=== PATIENT | female | born 1960 | race Caucasian/White ===

== ENCOUNTER 2024-03-18 21:40 | Emergency (ER) | payer OTHER ==
[~2024-03-18] VITALS: Ht 162.6 cm; Wt 113.4 kg
[~2024-03-18 21:40] MED LIST: ALBU90AE2; BENZ100C92 PO; MOLN200C PO; PRED20TA PO
[2024-03-18 21:43] VITALS: BP_SYST 128; PULSE 78; RESP 16; TEMP 98.6; O2SAT 97
[2024-03-18] MEDS ORDERED: DIPHTH,PERTUSS(ACELL),TET VAC 0.5 ML VIAL (Tdap) I.M. ONE (22:30)
[2024-03-18] MEDS ORDERED: LIDOCAINE 1%, 20 ML MDV 20 ML ONE (22:42)
[2024-03-18 23:30] VITALS: BP_SYST 128; PULSE 78; RESP 16; TEMP 98.6; O2SAT 97
== END 2024-03-18 23:30 | disposition home or self-care (01) ==
LOC: SED 21:40
DX: S01.81XA Laceration without foreign body of other part of head, initial encounter (principal); Z23 Encounter for immunization; I10 Essential (primary) hypertension; Z88.8 Allergy status to other drugs, medicaments and biological substances; Z79.899 Other long term (current) drug therapy; Z79.2 Long term (current) use of antibiotics; W18.39XA Other fall on same level, initial encounter; Y93.89 Activity, other specified; Y92.89 Other specified places as the place of occurrence of the external cause; Y99.8 Other external cause status
CPT/HCPCS: 70450-TC; 90715; 99285; J2001